=== PATIENT | male | born 1930 | race Caucasian/White ===

== ENCOUNTER 2017-01-26 09:29 | Emergency (ER) | payer MEDICARE, BC ==
[2017-01-26] MEDS ORDERED: LIDOCAINE URO-JET JELLY 2% 5 ML KIT URETHRAL ONE (10:12)
[2017-01-26 10:23] LABS: Appearance,Urine Cloudy (Clear); Bacteria,Urine Rare /hpf; Bilirubin,Urine Negative (Negative); Glucose,Urine (UA) Negative (Negative); Ketones,Urine Negative (Negative); Leukocyte Esterase,Urine Large (Negative); Mucus,Urine Rare /hpf; Nitrite,Urine Negative (Negative); PH, Urine 7.5 (5.0-8.0); Particle Count 3299; Protein,Urine Trace (Negative); RBC,Urine 87 /hpf (0-5); Specific Gravity,Urine 1.012 (1.001-1.035); Squamous Epithelial Cell,Urine <1 /hpf (0-4); UA Billing (MACRO vs. MICRO) MICRO; Urobilinogen,Urine <2.0 mg/dL (<2.0); WBC,Urine 78 /hpf (0-5)
--- NOTE | 2017-01-26 10:36 | ED ---
General Adult HPI - General Chief complaint: Urogenital Stated complaint: Urinary Retention Time Seen by Provider: 01/26/17 09:47 Source: patient, RN/MD, EMS, RN notes reviewed, old records reviewed Mode of arrival: EMS Limitations: no limitations - History of Present Illness Initial comments: patient 86-year-old male significant past medical history for BPH, who presents emergency room today by EMS with transfer from [facility] for urinary retention. Patient does admit that over the last week she's noticed a decreased urinary stream. He states recently he has been seen by urology did have a Avendano for urinary retention approximately a month ago. Patient states that he does have the urge to void but has been unable to this morning since 7 AM. Patient also admits to having some episodes of diarrhea passing gas. He denies any other complaints or symptoms at this time. Patient denies any recent fever, chills, shortness of breath, chest pain, back pain, abdominal pain, nausea or vomiting, numbness or tingling, headaches or visual changes, or any other complaints. - Related Data Previous Rx's Medication Instructions Recorded Ciprofloxacin HCl [Cipro] 500 mg PO Q12HR #20 day 01/26/17 Allergies Allergy/AdvReac Type Severity Reaction Status Date / Time acetaminophen Allergy Unknown Verified 01/26/17 09:43 [From Darvocet-N] hydromorphone [From Dilaudid] Allergy Unknown Verified 01/26/17 09:39 meperidine [From Demerol] Allergy Unknown Verified 01/26/17 09:39 morphine Allergy Unknown Verified 01/26/17 09:39 propoxyphene Allergy Unknown Verified 01/26/17 09:43 [From Darvocet-N] Review of Systems ROS Statement: Those systems with pertinent positive or pertinent negative responses have been documented in the HPI. ROS Other: All systems not noted in ROS Statement are negative. Past Medical History Past Medical History: Hypertension Additional Past Medical History / Comment(s): urinary retention Date of last positivie culture/infection: unk MDRO Source:: unk Past Surgical History: Appendectomy, Pacemaker Additional Past Surgical History / Comment(s): bladder Past Psychological History: No Psychological Hx Reported Smoking Status: Former smoker Past Alcohol Use History: None Reported Past Drug Use History: None Reported General Exam - General Exam Comments Initial Comments: General: The patient is awake and alert, in no distress, and does not appear acutely ill. Eye: Pupils are equal, round and reactive to light, extra-ocular movements are intact. No nystagmus. There is normal conjunctiva bilaterally. No signs of icterus. Ears, nose, mouth and throat: There are moist mucous membranes and no oral lesions. Neck: The neck is supple, there is no tenderness or JVD. Cardiovascular: There is a regular rate and rhythm. No murmur, rub or gallop is appreciated. Respiratory: Lungs are clear to auscultation, respirations are non-labored, breath sounds are equal. No wheezes, stridor, rales, or rhonchi. Gastrointestinal: Soft, non-distended, non-tender abdomen without masses or organomegaly noted. There is no rebound or guarding present. No CVA tenderness. Bowel sounds are unremarkable. Musculoskeletal: Normal ROM, no tenderness. Strength 5/5. Sensation intact. Pulses equal bilaterally 2+. Neurological: A&O x 3. CN II-XII intact, There are no obvious motor or sensory deficits. Coordination appears grossly intact. Speech is normal. Skin: Skin is warm and dry and no rashes or lesions are noted. Psychiatric: Cooperative, appropriate mood & affect, normal judgment. Limitations: no limitations Course Vital Signs 01/26/17 01/26/17 09:32 11:38 Temperature 97.2 F L 97.0 F L Pulse Rate 70 73 Respiratory 18 17 Rate Blood Pressure 188/104 163/89 O2 Sat by Pulse 98 95 Oximetry Medical Decision Making - Medical Decision Making She was seen here in the emergency room by urologist nuclear weapons custodian Dr. Lauren who did pass Avendano catheter. Several attempts were made by nursing staff here in the emergency room with no success. Full catheter placed by urology. They've recommended the patient can be discharged home and follow-up in the office. Patient advised to call Saturday morning to schedule an appointment. Patient will be started on antibiotics to cover for UTI. Advised return for any other concerns. - Lab Data Lab Results 01/26/17 Range/Units 10:15 Urine Color Yellow Urine Appearance Cloudy (Clear) Urine pH 7.5 (5.0-8.0) Ur Specific Otis 1.012 (1.001-1.035) Urine Protein Trace H (Negative) Urine Glucose (UA) Negative (Negative) Urine Ketones Negative (Negative) Urine Blood Moderate H (Negative) Urine Nitrite Negative (Negative) Urine Bilirubin Negative (Negative) Urine Urobilinogen <2.0 (<2.0) mg/dL Ur Leukocyte Esterase Large H (Negative) Urine RBC 87 H (0-5) /hpf Urine WBC 78 H (0-5) /hpf Ur Squamous Epith Cells <1 (0-4) /hpf Urine Bacteria Rare H (None) /hpf Urine Mucus Rare H (None) /hpf Disposition Clinical Impression: Urinary retention Disposition: HOME SELF-CARE Condition: Good Instructions: Urinary Retention in Men (ED) Additional Instructions: Please follow up with urologist Saturday morning to call the office to make an appointment. Please use antibiotic as prescribed and return to emergency room if any symptoms increase or worsen. Prescriptions: Ciprofloxacin HCl [Cipro] 500 mg PO Q12HR #20 day Referrals: Jose Fernando MD [Primary Care Provider] - 1-2 days Time of Disposition: 12:33
[2017-01-26 13:00] VITALS: BP 163/82; PULSE 74; RESP 18; TEMP 97.5
--- NOTE | 2017-01-26 13:55 | CONS ---
REASON FOR CONSULTATION: Urine retention with the inability to pass a catheter. Mr. Damon is an 86-year-old gentleman from the [facility] who comes to the emergency room urgently via [facility] because of the inability to urinate. He apparently has had marked difficulty urinating for the last several days. He has been cared for by Dr. Davy wills, but has transferred his urologic care to [place] recently. He was seen by our PA in the office ( ) and Dr. Arellano for urine retention. A catheter had been placed at the [facility] and subsequently was removed in our office. He subsequently voided adequately and was seen in followup 2 weeks later and seemed to be stable. However, over the last several days the patient has had difficulty urinating again as well as difficulty with bowel movements. Apparently, the patient has intermittent urine retention, chronic urinary tract problems. He apparently has been cystoscoped several times without identification of problem. It is possible he had a hypotonic neurogenic bladder or an incomplete bladder emptying. [facility] as well as our nursing staff tried to several times to place a catheter and failed to do so. The patient has not had previous prostate surgery. He states he was scoped within the past several months and nothing was identifiable at "there is nothing that can be done for him". Past medical history is positive for coronary artery disease. He has history of pacemaker. He is on multiple medications including amiodarone, carvedilol, isosorbide, meclizine. He has bowel problems for which he takes MiraLAX. He also takes Nitrostat. He has eye problems for which he takes Ocuvite and he is also on Flomax 0.4 mg b.i.d. The patient's surgical history include cholecystectomy, eye surgery, pacemaker, orthopedic surgery and appendectomy. Allergies are to DEMEROL, DARVOCET and NARCOTICS. Family social history is noncontributory. REVIEW OF SYSTEMS: He has chronic constipation. He has chronic voiding dysfunction. He has cardiac problems as mentioned above. On examination, the patient is uncomfortable. His bladder is distended. His blood pressure is 163/89. His heart rate is 73. His respirations are 17. His O2 sat is 97%. HEENT EXAMINATION: He wears hearing aids. RESPIRATIONS: Nonlabored. He is not tachycardiac. ABDOMEN: Soft, other than a distended bladder. The penis is circumcised and slightly irritated due to multiple attempts to pass the catheter. Scrotum is unremarkable. EXTREMITIES: Without edema. IMPRESSION: Urine retention, inability to pass a catheter. RECOMMENDATIONS: Catheter attempt. MTDD
--- NOTE | 2017-01-26 14:11 | PCN ---
PREOPERATIVE DIAGNOSIS: Inability to pass a catheter. 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 PROCEDURE: Complicated catheter placement using cystoscopy. INDICATIONS: Mr. Damon is 86. He has a long history of prostate and bladder problems. He is unable to urinate. He has a full bladder based on bladder scan. The nursing staff at [facility] and [facility] are unable to pass a catheter. I am seeing the patient. PROCEDURE: The patient is prepped and draped sterilely. A 16 Coude tip catheter meets resistance and difficulty passing in the vulvar urethra. I wonder if there may be urethral stricture. Because of the multiple difficult attempts, I will perform cystoscopy in order to identify his problem. He is prepped and draped sterilely. The flexible cystoscope was introduced and the anterior urethra is normal. I passed into the vulvar urethra and actually the false passage is anterior, not posterior as it usually is. 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 I passed into the prostatic urethra that is somewhat obstructing, but difficult to assess. The bladder is grossly full of urine and heavily trabeculated ( ). Through the flexible scope, an 0.035 wire is passed into the bladder and ( ) into the bladder nicely. I removed the scope and over the wire a 16 [place] Avendano catheter after removed the tip of catheter is passed into the bladder. Over a liter of clear urine is obtained. The catheter as it passes through the stricture has a slight pop consistent with a mild stricture in the mid vulvar urethra. IMPRESSION: Inability to pass a catheter due to false passage and possible stricture. 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 He does need urologic evaluation, which I will do in the office. He will come to the office in 10 days and I will repeat the cystoscope to further assess the prostate, bladder and false passage. At that point in time, I will decide whether he needs a catheter and how we will manage his lower urinary tract. RIAN
== END 2017-01-26 13:00 | disposition home or self-care (01) ==
LOC: EC 09:29
DX: R33.8 Other retention of urine (principal); R19.7 Diarrhea, unspecified; R14.3 Flatulence; Z87.891 Personal history of nicotine dependence; Z88.5 Allergy status to narcotic agent; Z98.890 Other specified postprocedural states
CPT/HCPCS: 51702; 51798; 81001; 87086; 99285

== ENCOUNTER 2017-01-27 00:58 | Emergency (ER) | payer MEDICARE, BC ==
[2017-01-27 01:07] VITALS: BP 150/70; PULSE 65; RESP 18; TEMP 97.8
--- NOTE | 2017-01-27 01:48 | ED ---
Male Urogenital HPI - General Chief complaint: Urogenital Stated complaint: Male Time Seen by Provider: 01/27/17 01:13 Source: patient, RN notes reviewed Mode of arrival: wheelchair Limitations: no limitations - History of Present Illness Initial comments: Patient is an 86-year-old male presents emergency room for evaluation and urinary retention. Patient states he was here earlier for urinary retention. Patient states the nurses were unable to get the Avendano catheter inserted, so Dr. Kathleen had was called in to place the Avendano catheter with a scope. Patient states tonight while getting ready for bed he noticed the Avendano catheter was in his underwear in the balloon was not inflated. Patient states he had an episode of urinary incontinence afterwards. Patient states he has been unable to urinate since. - Related Data Home Medications Medication Instructions Recorded Confirmed Carvedilol [Coreg] 6.25 mg PO BID 01/26/17 01/27/17 Docusate [Colace] 100 mg PO DAILY 01/26/17 01/27/17 Isosorbide Mononitrate ER [Imdur] 60 mg PO HS 01/26/17 01/27/17 Meclizine [Antivert] 25 mg PO DAILY 01/26/17 01/27/17 Nitroglycerin Sl Tabs [Nitrostat] 0.4 mg SUBLINGUAL Q5M PRN 01/26/17 01/27/17 Tamsulosin HCl [Flomax] 0.4 mg PO DAILY 01/26/17 01/27/17 Vits A,C,E/Lutein/Minerals 1 tab PO DAILY 01/26/17 01/27/17 [Ocuvite with Lutein Tablet] Previous Rx's Medication Instructions Recorded Ciprofloxacin HCl [Cipro] 500 mg PO Q12HR #20 day 01/26/17 Allergies Allergy/AdvReac Type Severity Reaction Status Date / Time acetaminophen Allergy Unknown Verified 01/27/17 01:07 [From Darvocet-N] hydromorphone [From Dilaudid] Allergy Unknown Verified 01/27/17 01:07 meperidine [From Demerol] Allergy Unknown Verified 01/27/17 01:07 morphine Allergy Unknown Verified 01/27/17 01:07 propoxyphene Allergy Unknown Verified 01/27/17 01:07 [From Darvocet-N] Review of Systems ROS Statement: Those systems with pertinent positive or pertinent negative responses have been documented in the HPI. ROS Other: All systems not noted in ROS Statement are negative. Past Medical History Past Medical History: Hypertension, Prostate Disorder Additional Past Medical History / Comment(s): urinary retention, constipation History of Any Multi-Drug Resistant Organisms: MRSA Date of last positivie culture/infection: 2006 MDRO Source:: randolph Past Surgical History: Appendectomy, Cholecystectomy, Pacemaker Additional Past Surgical History / Comment(s): bladder, left ankle Past Psychological History: No Psychological Hx Reported Smoking Status: Former smoker Past Alcohol Use History: None Reported Past Drug Use History: None Reported General Exam - General Exam Comments Initial Comments: Sitting in exam room, no acute distress. Limitations: no limitations General appearance: alert, in no apparent distress Head exam: Present: atraumatic, normocephalic, normal inspection Eye exam: Present: normal appearance ENT exam: Present: normal exam Neck exam: Present: normal inspection Respiratory exam: Present: normal lung sounds bilaterally. Absent: respiratory distress Cardiovascular Exam: Present: regular rate, normal rhythm, normal heart sounds GI/Abdominal exam: Present: soft, normal bowel sounds. Absent: distended, tenderness, guarding Extremities exam: Present: normal inspection Back exam: Present: normal inspection Neurological exam: Present: alert, oriented X3, CN II-XII intact, normal gait Psychiatric exam: Present: normal affect, normal mood Skin exam: Present: warm, dry, intact, normal color. Absent: rash Course Vital Signs 01/27/17 01:01 Temperature 97.8 F Pulse Rate 65 Respiratory 18 Rate Blood Pressure 150/70 O2 Sat by Pulse 97 Oximetry Medical Decision Making - Medical Decision Making Patient is an 86-year-old male presents emergency room for evaluation of urinary retention. Patient was here earlier and had a fully catheter placed. Avendano catheter apparently fell out this evening. Bladder scan significant for 438 mL in bladder. Avendano catheter was successfully placed by nurse. Patient advised to follow-up Dr. Kathleen. Return parameters discussed. Case discussed with Roxanne. Disposition Clinical Impression: Urinary retention, Encounter for Avendano catheter replacement Disposition: HOME SELF-CARE Condition: Good Instructions: Urinary Retention in Men (ED), Avendano Catheter Placement and Care (ED) Additional Instructions: Please follow-up with the urologist. If any new symptom arises or symptoms worsen, return to ER as soon as possible. Referrals: Jose Fernando MD [Primary Care Provider] - 1-2 days Gilberto Lauren MD [STAFF PHYSICIAN] - 1-2 days Time of Disposition: 01:47
== END 2017-01-27 02:00 | disposition home or self-care (01) ==
LOC: EC 00:58
DX: R33.9 Retention of urine, unspecified (principal); Z46.6 Encounter for fitting and adjustment of urinary device; I10 Essential (primary) hypertension; N42.9 Disorder of prostate, unspecified; Z87.891 Personal history of nicotine dependence; Z88.5 Allergy status to narcotic agent; Z79.899 Other long term (current) drug therapy
CPT/HCPCS: 51702; 51798; 99283